=== PATIENT | male | born 1975 | race Caucasian/White ===

== ENCOUNTER 2018-07-31 08:42 | Day surgery (SDC) | payer BC, OTHER ==
[2018-07-27 11:50] VITALS: BMI 34.5
[2018-07-31] MEDS ORDERED: MIDAZOLAM HCL 2 MG/2 ML SINGLE DOSE VIAL ONE ×3 (11:05→11:54)
[2018-07-31] MEDS ORDERED: BUPIVACAINE HCL/PF 2.5 MG/ML - 30 ML VIAL IJ ONE (11:26)
[2018-07-31] MEDS ORDERED: PROPOFOL 20 ML ONE ×2 (11:47→11:52)
[2018-07-31] MEDS ORDERED: ceFAZolin SODIUM 1 GM VIAL ONE (12:24)
[2018-07-31] MEDS ORDERED: ONDANSETRON 4 MG/2 ML VIAL ONE ×2 (12:24→13:05)
[2018-07-31] MEDS ORDERED: KETOROLAC TROMETHAMINE 30 MG/1 ML VIAL ONE (12:24)
[2018-07-31] MEDS ORDERED: LIDOCAINE HCL/PF 2% SDV 5ML VIAL ONE (12:24)
[2018-07-31] MEDS ORDERED: DEXAMETHASONE SOD PHOSPHATE 4 MG/1 ML VIAL ONE (12:24)
[2018-07-31] MEDS ORDERED: oxyCODONE HCL 5 MG TABLET PO PRN (12:28)
[2018-07-31] MEDS ORDERED: ONDANSETRON 4 MG/2 ML VIAL IVPUSH PRN (12:28)
[2018-07-31] MEDS ORDERED: BUPIVACAINE HCL/PF 0.25% (2.5MG/ML) 10 ML VIAL IJ ONE (12:29)
[2018-07-31] MEDS ORDERED: LACTATED RINGERS SOLUTION 1,000 ML IV SCH (12:30)
[2018-07-31] MEDS ORDERED: oxyCODONE HCL 5 MG TABLET ONE (14:03)
[2018-07-31 14:23] VITALS: TEMP 98
[2018-07-31 15:28] VITALS: BP 130/76; PULSE 82
--- NOTE | 2018-08-05 14:48 | PATH ---
Surgical Pathology Report Patient Name: LYNN HERNANDEZ Med. Rec. #: [id number] /Age/Gender: 1975 (Age: 43) / M Account: [id number] Location: [facility] AMBULATORY Taken: 07/31/2018 Received: 07/31/2018 Reported: 08/05/2018 Physicians: Nicho Grayson M.D. Specimen(s) Received LEFT KNEE SHAVINGS Clinical History Left knee internal derangement Final Diagnosis KNEE, LEFT, ARTHROSCOPIC SHAVINGS: FIBROCOLLAGENOUS AND FIBROSYNOVIAL TISSUE SHOWING NODULAR AGGREGATES OF CALCIFIC MATERIAL, CONSISTENT WITH CHONDROCALCINOSIS (PSEUDOGOUT). BONE WITH NO PATHOLOGIC FINDINGS. Electronically Signed Mariia Gregory M.D. Gross Description Received in formalin, labeled "left knee shavings," is a 4.5 x 3.0 x 0.3 cm. aggregate of rodriguez-yellow soft tissue fragments. 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 /07/31/2018 [facility]07/31/2018
--- NOTE | 2018-08-08 11:14 | OP ---
DATE OF OPERATION: 07/31/2018 SURGEON: Nicho Sepulveda MD ASSISSTANT: BRUNILDA Waters PREOPERATIVE DIAGNOSIS: 1. Left knee medial and lateral meniscal tears. 2. Left knee cartilage injury. 3. Left knee synovitis. POSTOPERATIVE DIAGNOSIS: 1. Left knee medial and lateral meniscal tears. 2. Left knee cartilage injury. 3. Left knee synovitis. PROCEDURE: 1. Left knee arthroscopy with partial meniscectomies of medial and lateral meniscus (CPT code 95249). 2. Left knee arthroscopy with chondroplasty and abrasoplasty (CPT code 30946). 3. Left knee arthroscopy with synovectomy (CPT code 2975). FINDINGS: 1. Medial meniscus body and posterior horn tear, posterior 1/3 without a rim intact. 2. Lateral meniscus posterior horn tear. 3. Synovitis patellofemoral medial lateral notch area. 4. grade 2-3 cartilage injury medial femoral condyle and tibial plateau with grade 4 changes 5 cm x 2 cm posterior medial course of the tibial plateau. 5. ACL and PCL intact. 6. Diffuse central grade 2-4 cartilage injury patella, patellofemoral, trochlea. DESCRIPTION OF PROCEDURE: Informed consent was obtained. The patient came to the operating room, where the lower extremity was prepped and draped in a sterile fashion. A tourniquet was placed on the upper thigh, but not inflated. Using standard arthroscopic technique, a lateral incision and portal was made to allow for introduction of the camera into the suprapatellar bursa. This was then taken to the medial joint line, where under direct visualization, a medial incision and portal was made. Excessive synovium noted in the medial, lateral and patellofemoral and notch area was removed by an upbiter, shaver and Bovie cautery. This was found to bring in inflammatory tissue into the joint surface, a source of pain and dysfunction. Probing of the medial and lateral meniscus found tears, as described in the findings. These were removed with the upbiter and shaver and taken back to a stable rim. Grade 2 to 3 degenerative changes were treated with a chondroplasty, removing all flaking surfaces with low-setting Bovie along the periphery to prevent further flaking. Grade 4 changes, as noted, were treated with an abrasoplasty, creating a bleeding surface at the bone/cartilage interface. Aggressive debridement with shaver/kya created bleeding surface. Micro fracture also done when indicated in findings. All areas of the knee were once again reexamined. The knee was then drained and a single suture was placed in all portals. A sterile dressing was placed and the patient was transferred to the recovery room without complication. ADDENDUM Micro fracture was also performed in the grade 4 changes along the posterior medial portion of the medial tibial plateau, creating a bleeding surface and removing all loose debris in the area. NICHO SEPULVEDA M.D. [id number]
== END 2018-07-31 15:15 | disposition home or self-care (01) ==
LOC: FASU 08:42
PROVIDERS: ATTEND Orthopaedic Surgery
PROC: 0SBD4ZZ Excision of Left Knee Joint, Percutaneous Endoscopic Approach (ICD-10-PCS; 2018-07-31)
PROC: 0SBD4ZZ Excision of Left Knee Joint, Percutaneous Endoscopic Approach (ICD-10-PCS; 2018-07-31)
PROC: 0SBD4ZZ Excision of Left Knee Joint, Percutaneous Endoscopic Approach (ICD-10-PCS; principal; 2018-07-31 12:05)
DX: S83.242A Other tear of medial meniscus, current injury, left knee, initial encounter (principal); S83.282A Other tear of lateral meniscus, current injury, left knee, initial encounter; S83.8X2A Sprain of other specified parts of left knee, initial encounter; M65.862 Other synovitis and tenosynovitis, left lower leg; X58.XXXA Exposure to other specified factors, initial encounter; Y93.9 Activity, unspecified; Y92.9 Unspecified place or not applicable
CPT/HCPCS: 88304-TC; 94760

== ENCOUNTER 2022-05-07 10:09 | Day surgery (SDC) | payer BC ==
[2022-04-25 14:28] VITALS: BMI 33.9
[2022-05-07] MEDS ORDERED: CELECOXIB 200 MG CAPSULE PO ONE (10:19)
[2022-05-07] MEDS ORDERED: CEFAZOLIN 2 GM in DEXTROSE 5%-WATER - 50 ML IVPB ONE (10:19)
[2022-05-07] MEDS ORDERED: GABAPENTIN 300 MG CAPSULE PO ONE ×2 (10:19→10:30)
[2022-05-07] MEDS ORDERED: TRANEXAMIC ACID 1000 MG/10 ML VIAL IVPUSH ONE (10:19)
[2022-05-07] MEDS ORDERED: ceFAZolin SODIUM 1 GM VIAL ONE ×3 (12:20→20:35)
[2022-05-07] MEDS ORDERED: THROMBIN (BOVINE) 5,000 UNIT VIAL TP ONE (12:20)
[2022-05-07] MEDS ORDERED: FENTANYL CITRATE/PF 50 MCG/ML VIAL ONE (12:22)
[2022-05-07] MEDS ORDERED: MIDAZOLAM HCL 2 MG/2 ML SINGLE DOSE VIAL ONE ×2 (12:22→13:16)
[2022-05-07] MEDS ORDERED: BUPIVACAINE HCL/PF 0.5% (5MG/ML) 10 ML VIAL ONE (12:23)
[2022-05-07] MEDS ORDERED: PROPOFOL 20 ML ONE ×2 (12:37)
[2022-05-07] MEDS ORDERED: BUPIVICAINE 0.25%/MORPH PF/KETOROLAC - 51ML DISP.SYRINGE IA ONE ×2 (12:45→14:08)
[2022-05-07] MEDS ORDERED: ONDANSETRON 4 MG/2 ML VIAL ONE (13:17)
[2022-05-07] MEDS ORDERED: DEXAMETHASONE SOD PHOSPHATE 4 MG/1 ML VIAL ONE (13:17)
[2022-05-07] MEDS ORDERED: TRANEXAMIC ACID 1000 MG/10 ML VIAL ONE (13:17)
[2022-05-07] MEDS ORDERED: ONDANSETRON 4 MG/2 ML VIAL IVPUSH PRN ×2 (14:48→15:14)
[2022-05-07] MEDS ORDERED: LACTATED RINGERS SOLUTION 1,000 ML IV SCH (15:00)
[2022-05-07] MEDS ORDERED: oxyCODONE HCL 5 MG TABLET PO PRN ×4 (15:14)
[2022-05-07] MEDS: ACETAMINOPHEN 500 MG TABLET (FP) PO SCH ×3 (15:45→21:06)
[2022-05-07] MEDS: CEFAZOLIN 2 GM in DEXTROSE 5%-WATER 100 ML IVPB SCH (21:10)
[2022-05-07] MEDS: SENNOSIDES/DOCUSATE COMBO (SENNA PLUS) TABLET (UD) PO SCH (21:10)
[2022-05-07] MEDS ORDERED: ESCITALOPRAM OXALATE 10 MG TABLET PO SCH (22:00)
[2022-05-07] MEDS ORDERED: traZODone HCL 50 MG TABLET (FP) PO SCH (22:00)
[2022-05-08] MEDS: CEFAZOLIN 2 GM in DEXTROSE 5%-WATER 100 ML IVPB SCH (01:44)
[2022-05-08] MEDS: ACETAMINOPHEN 500 MG TABLET (FP) PO SCH ×2 (03:03→08:59)
[2022-05-08] MEDS: ACAMPROSATE CALCIUM 333 MG TABLET.DR PO SCH ×2 (03:20→05:20)
[2022-05-08] MEDS ORDERED: ASPIRIN 325 MG TABLET PO SCH (08:00)
[2022-05-08] MEDS: SENNOSIDES/DOCUSATE COMBO (SENNA PLUS) TABLET (UD) PO SCH (09:00)
[2022-05-08 09:20] VITALS: BP 142/73; PULSE 74; TEMP 98
[2022-05-08] MEDS ORDERED: PANTOPRAZOLE 40 MG TABLET PO SCH (10:00)
[2022-05-08] MEDS ORDERED: HYDROCHLOROTHIAZIDE 12.5 MG CAPSULE (FP) PO SCH (10:00)
[2022-05-08] MEDS ORDERED: MULTIVITAMINS (DAILY MVI) TABLET (FP) PO SCH (10:00)
== END 2022-05-08 11:06 | disposition home health service (06) ==
LOC: FASU 10:09 → FASU-ENDO 10:09 → FM/S 16:20 → FASU 05-08 11:06
PROVIDERS: ATTEND Orthopaedic Surgery
PROC: 8E0YXBZ Computer Assisted Procedure of Lower Extremity (ICD-10-PCS; 2022-05-07)
PROC: 8E0Y0CZ Robotic Assisted Procedure of Lower Extremity, Open Approach (ICD-10-PCS; 2022-05-07)
PROC: 0SRC0L9 Replacement of Right Knee Joint with Medial Unicondylar Synthetic Substitute, Cemented, Open Approach (ICD-10-PCS; principal; 2022-05-07 13:35)
DX: M17.11 Unilateral primary osteoarthritis, right knee (principal)
CPT/HCPCS: 20985; 27446; C1776; S2900; 73560-TC-RT-FY; 94760; 97010-GP; 97116-GP; 97162-GP

== ENCOUNTER 2022-07-02 10:34 | Day surgery (SDC) | payer BC ==
[2022-06-27 09:17] VITALS: BMI 33.9
[2022-07-02] MEDS ORDERED: TRANEXAMIC ACID 1000 MG/10 ML VIAL IVPUSH ONE (11:02)
[2022-07-02] MEDS ORDERED: CEFAZOLIN 2 GM in DEXTROSE 5%-WATER - 50 ML IVPB ONE (11:02)
[2022-07-02] MEDS ORDERED: CELECOXIB 200 MG CAPSULE ONE (11:24)
[2022-07-02] MEDS: CELECOXIB 200 MG CAPSULE PO ONE ×2 (11:25→16:24)
[2022-07-02] MEDS ORDERED: MIDAZOLAM HCL 2 MG/2 ML SINGLE DOSE VIAL ONE ×2 (12:13→14:30)
[2022-07-02] MEDS ORDERED: BUPIVACAINE LIPOSOME/PF (EXPAREL) 266 MG/20 ML VIAL ONE (12:13)
[2022-07-02] MEDS ORDERED: BUPIVACAINE HCL/PF 0.5% (5 MG/ML) 30 ML VIAL IJ ONE (12:13)
[2022-07-02] MEDS ORDERED: BUPIVACAINE HCL 50 ML ONE (12:21)
[2022-07-02] MEDS ORDERED: THROMBIN (BOVINE) 5,000 UNIT VIAL TP ONE (12:27)
[2022-07-02] MEDS ORDERED: ceFAZolin SODIUM 1 GM VIAL ONE ×2 (12:27→13:38)
[2022-07-02] MEDS ORDERED: PROPOFOL 40 ML ONE (13:16)
[2022-07-02] MEDS ORDERED: ONDANSETRON 4 MG/2 ML VIAL ONE (13:38)
[2022-07-02] MEDS ORDERED: DEXAMETHASONE SOD PHOSPHATE 4 MG/1 ML VIAL ONE (13:38)
[2022-07-02] MEDS ORDERED: TRANEXAMIC ACID 1000 MG/10 ML VIAL ONE (13:38)
[2022-07-02] MEDS ORDERED: KETOROLAC TROMETHAMINE 30 MG/1 ML VIAL ONE (13:38)
[2022-07-02] MEDS ORDERED: PROPOFOL 20 ML ONE (14:09)
[2022-07-02] MEDS ORDERED: BUPIVICAINE 0.25%/MORPH PF/KETOROLAC - 51ML DISP.SYRINGE IA ONE (14:17)
[2022-07-02] MEDS ORDERED: ACETAMINOPHEN INJECTION 100 ML IVPB ONE (14:53)
[2022-07-02] MEDS ORDERED: ONDANSETRON 4 MG/2 ML VIAL IVPUSH PRN (14:57)
[2022-07-02] MEDS ORDERED: LACTATED RINGERS SOLUTION 1,000 ML IV SCH ×2 (15:00→15:15)
[2022-07-02] MEDS ORDERED: ACETAMINOPHEN 1000 MG/100 ML BAG IVPB ONE (15:01)
[2022-07-02] MEDS ORDERED: oxyCODONE HCL 5 MG TABLET PO PRN ×2 (15:01)
[2022-07-02] MEDS: KETOROLAC TROMETHAMINE 30 MG/1 ML VIAL IVPUSH SCH ×2 (16:26→21:23)
[2022-07-02] MEDS: CEFAZOLIN SODIUM 2 GM in DEXTROSE 5%-WATER 100 ML IVPB SCH (21:18)
[2022-07-02] MEDS: ACETAMINOPHEN 500 MG TABLET (FP) PO SCH (21:20)
[2022-07-02] MEDS: SENNOSIDES/DOCUSATE COMBO (SENNA PLUS) TABLET (UD) PO SCH (21:20)
[2022-07-02] MEDS: oxyCODONE HCL 10 MG SUSTAINED ACTING TABLET PO SCH (21:21)
[2022-07-02] MEDS ORDERED: ESCITALOPRAM OXALATE 10 MG TABLET PO SCH (22:00)
[2022-07-02] MEDS ORDERED: traZODone HCL 50 MG TABLET (FP) PO SCH (22:00)
[2022-07-03 00:13] VITALS: RESP 18
[2022-07-03] MEDS: ACETAMINOPHEN 500 MG TABLET (FP) PO SCH ×2 (02:40→08:06)
[2022-07-03] MEDS: CEFAZOLIN SODIUM 2 GM in DEXTROSE 5%-WATER 100 ML IVPB SCH (06:34)
[2022-07-03] MEDS ORDERED: ASPIRIN 325 MG TABLET PO SCH (08:00)
[2022-07-03 09:01] VITALS: TEMP 98.3
[2022-07-03] MEDS ORDERED: PANTOPRAZOLE 20 MG TABLET PO SCH (10:00)
[2022-07-03] MEDS ORDERED: MULTIVITAMINS (DAILY MVI) TABLET (FP) PO SCH (10:00)
[2022-07-03] MEDS ORDERED: HYDROCHLOROTHIAZIDE 12.5 MG CAPSULE (FP) PO SCH (10:00)
[2022-07-03] MEDS ORDERED: LORATADINE 10 MG TABLET PO SCH (10:00)
[2022-07-03] MEDS: oxyCODONE HCL 10 MG SUSTAINED ACTING TABLET PO SCH (10:07)
[2022-07-03] MEDS: SENNOSIDES/DOCUSATE COMBO (SENNA PLUS) TABLET (UD) PO SCH (10:07)
[2022-07-03 12:32] VITALS: BP 133/88; PULSE 70
== END 2022-07-03 12:36 | disposition home health service (06) ==
LOC: FASUSAT 10:34 → FM/S 16:05 → FASUSAT 07-03 12:36
PROVIDERS: ATTEND Orthopaedic Surgery
PROC: 8E0YXBZ Computer Assisted Procedure of Lower Extremity (ICD-10-PCS; 2022-07-02)
PROC: 8E0Y0CZ Robotic Assisted Procedure of Lower Extremity, Open Approach (ICD-10-PCS; 2022-07-02)
PROC: 0SRD0L9 Replacement of Left Knee Joint with Medial Unicondylar Synthetic Substitute, Cemented, Open Approach (ICD-10-PCS; principal; 2022-07-02 13:26)
DX: M17.12 Unilateral primary osteoarthritis, left knee (principal)
CPT/HCPCS: 20985; 27446; C1776; S2900; 73560-TC-LT-FY; 94760; 97010-GP; 97116-GP; 97162-GP

== ENCOUNTER 2022-08-06 04:28 | Day surgery (SDC) | payer BC ==
[2022-08-05 12:28] VITALS: BMI 33.9
[2022-08-06] MEDS ORDERED: LIDOCAINE HCL/PF 1% SDV 5ML VIAL ONE (07:42)
[2022-08-06] MEDS ORDERED: DEXAMETHASONE SOD PHOSPHATE 10 MG/1 ML VIAL ONE (07:42)
[2022-08-06 09:15] VITALS: BP 133/77; PULSE 68; RESP 20; TEMP 97.5
== END 2022-08-06 10:27 | disposition home or self-care (01) ==
LOC: JASU-SURG 04:28
PROVIDERS: ATTEND Pain Medicine Pain Medicine
DX: Z53.8 Procedure and treatment not carried out for other reasons (principal)
CPT/HCPCS: J1100

== ENCOUNTER 2022-09-03 10:38 | Inpatient (IN) | payer BC ==
[2022-08-29 12:23] VITALS: BMI 33.9
[2022-09-03] MEDS ORDERED: ROCURONIUM BROMIDE 50 MG/5 ML SYRINGE ONE (12:38)
[2022-09-03] MEDS ORDERED: SUCCINYLCHOLINE CHLORIDE 200 MG/10 ML SYRINGE ONE (12:38)
[2022-09-03] MEDS ORDERED: MIDAZOLAM HCL 2 MG/2 ML SINGLE DOSE VIAL ONE (12:39)
[2022-09-03] MEDS ORDERED: FAMOTIDINE 20 MG/50 ML IVPB 20 MG/50 ML MG IVPB ONE (12:42)
[2022-09-03] MEDS ORDERED: ceFAZolin SODIUM 1 GM VIAL ONE (12:50)
[2022-09-03] MEDS ORDERED: VANCOMYCIN 1,000 MG VIAL (RESTRICTED TO ID ONLY) ONE ×2 (13:03→13:32)
[2022-09-03] MEDS ORDERED: ONDANSETRON 4 MG/2 ML VIAL IVPUSH PRN (14:14)
[2022-09-03] MEDS ORDERED: oxyCODONE HCL 5 MG TABLET PO PRN (14:14)
[2022-09-03] MEDS ORDERED: FENTANYL CITRATE/PF 50 MCG/ML VIAL ONE (14:19)
[2022-09-03] MEDS: LACTATED RINGERS SOLUTION 1,000 ML IV SCH (15:20)
[2022-09-03] MEDS: ESCITALOPRAM OXALATE 10 MG TABLET PO SCH (21:23)
[2022-09-03] MEDS: traZODone HCL 50 MG TABLET (FP) PO SCH (21:24)
[2022-09-04] MEDS ORDERED: VANCOMYCIN/WATER 1250 MG 1,250 MG/250 ML BAG IVPB ONE (07:51)
[2022-09-04] MEDS: HYDROCHLOROTHIAZIDE 12.5 MG CAPSULE (FP) PO SCH (09:21)
[2022-09-04] MEDS: PANTOPRAZOLE 20 MG TABLET PO SCH (09:21)
[2022-09-04 11:10] LABS: HEMATOCRIT 42.7 % (35.4-49); HEMOGLOBIN 14.8 G/dL (11.7-16.9); MCH 29.2 pg (25.7-33.7); MCHC 34.6 g/dl (32.0-35.9); MEAN CELL VOLUME 84.4 fl (80-96); MEAN PLT VOLUME 8.1 fl (7.5-11.1); PLATELET COUNT 195.7 10^3/uL (134-434); RBC 5.06 10^6/uL (4.00-5.60); RDW 14.6 % (11.9-15.9)
[2022-09-04 11:25] LABS: ALBUMIN 3.6 g/dl (3.4-5.0); BILIRUBIN,TOTAL 0.8 mg/dl (0.2-1); TOT PROT 6.2 g/dl (6.4-8.2)
[2022-09-04 11:50] LABS: ERYTHROCYTE SEDIMENTATION RATE 9 mm/hr (0-10)
[2022-09-04] MEDS: LACTATED RINGERS SOLUTION 1,000 ML IV SCH (14:10)
[2022-09-04] MEDS: VANCOMYCIN/WATER 1,250 MG/250 ML BAG IVPB SCH (20:36)
[2022-09-04] MEDS: traZODone HCL 50 MG TABLET (FP) PO SCH (21:10)
[2022-09-04] MEDS: ESCITALOPRAM OXALATE 10 MG TABLET PO SCH (21:10)
[2022-09-05] MEDS: VANCOMYCIN/WATER 1,250 MG/250 ML BAG IVPB SCH (07:44)
[2022-09-05] MEDS: PANTOPRAZOLE 20 MG TABLET PO SCH (09:09)
[2022-09-05] MEDS: HYDROCHLOROTHIAZIDE 12.5 MG CAPSULE (FP) PO SCH (09:09)
[2022-09-05] MEDS ORDERED: CEFAZOLIN SODIUM 2 GM in DEXTROSE 5%-WATER 100 ML IVPB SCH ×2 (10:00→18:00)
[2022-09-05 15:34] VITALS: BP 134/82; PULSE 86; RESP 18; TEMP 98.3
== END 2022-09-05 18:47 | disposition home or self-care (01) | DRG 465 ==
LOC: FASUSAT 10:38 → EDSTATUS 13:30 → FM/S 14:18 → FASUSAT 16:05 → FM/S 09-04 16:53
PROVIDERS: ADMIT Orthopaedic Surgery; ATTEND Orthopaedic Surgery
PROC: 0JBP0ZZ Excision of Left Lower Leg Subcutaneous Tissue and Fascia, Open Approach (ICD-10-PCS; principal; 2022-09-03 13:20)
PROC: 02HV33Z Insertion of Infusion Device into Superior Vena Cava, Percutaneous Approach (ICD-10-PCS; 2022-09-05)
DX: T84.7XXA Infection and inflammatory reaction due to other internal orthopedic prosthetic devices, implants and grafts, initial encounter (principal); A49.01 Methicillin susceptible Staphylococcus aureus infection, unspecified site; I10 Essential (primary) hypertension; Y83.9 Surgical procedure, unspecified as the cause of abnormal reaction of the patient, or of later complication, without mention of misadventure at the time of the procedure
CPT/HCPCS: 36415; 36569; 80053; 85027; 85651; 86140; 87070; 87186; 87205; 94760; 97116-GP; 97162-GP

== ENCOUNTER 2022-11-08 04:04 | Day surgery (SDC) | payer BC ==
[2022-11-01 11:23] VITALS: BMI 33.9
[2022-11-08] MEDS ORDERED: DEXAMETHASONE SOD PHOSPHATE 4 MG/1 ML VIAL ONE ×2 (07:15→07:42)
[2022-11-08] MEDS ORDERED: DEXAMETHASONE SOD PHOSPHATE 10 MG/1 ML VIAL ONE ×2 (07:15→07:43)
[2022-11-08] MEDS ORDERED: LIDOCAINE HCL/PF 1% SDV 5ML VIAL ONE ×2 (07:15→07:42)
[2022-11-08] MEDS ORDERED: IOHEXOL 180 MG/1 ML ML IJ ONE ×2 (09:52→09:58)
[2022-11-08] MEDS ORDERED: DEXAMETHASONE SOD PHOSPHATE 10 MG/1 ML VIAL IVPUSH ONE ×2 (09:53→09:58)
[2022-11-08] MEDS ORDERED: LIDOCAINE HCL 1%, 10 MG/ML (50 mL VIAL) INF ONE ×2 (09:55→09:58)
[2022-11-08 10:42] VITALS: RESP 18
[2022-11-08 10:53] VITALS: BP 134/88; PULSE 83; TEMP 98.2
== END 2022-11-08 10:53 | disposition home or self-care (01) ==
LOC: JASU-SURG 04:04
PROVIDERS: ATTEND Pain Medicine Pain Medicine
PROC: 3E0R33Z Introduction of Anti-inflammatory into Spinal Canal, Percutaneous Approach (ICD-10-PCS; 2022-11-08)
PROC: B01BYZZ Fluoroscopy of Spinal Cord using Other Contrast (ICD-10-PCS; 2022-11-08)
PROC: 3E0R3BZ Introduction of Anesthetic Agent into Spinal Canal, Percutaneous Approach (ICD-10-PCS; principal; 2022-11-08 10:45)
DX: M54.16 Radiculopathy, lumbar region (principal); M48.061 Spinal stenosis, lumbar region without neurogenic claudication
CPT/HCPCS: 76000-TC-FY; J1100

== ENCOUNTER 2022-12-13 04:36 | Day surgery (SDC) | payer BC ==
[2022-12-09 13:04] VITALS: BMI 33.9
[2022-12-13] MEDS ORDERED: LIDOCAINE HCL/PF 1% SDV 5ML VIAL ONE (07:48)
[2022-12-13] MEDS ORDERED: DEXAMETHASONE SOD PHOSPHATE 10 MG/1 ML VIAL ONE (07:48)
[2022-12-13 10:14] VITALS: BP 148/80; PULSE 71; RESP 20; TEMP 96.6
== END 2022-12-13 13:28 | disposition home or self-care (01) ==
LOC: JASU-SURG 04:36
PROVIDERS: ATTEND Pain Medicine Pain Medicine
DX: Z53.8 Procedure and treatment not carried out for other reasons (principal)
CPT/HCPCS: J1100